=== PATIENT | female | born 1990 | race African-American/Black ===

== ENCOUNTER 2022-05-05 10:55 | Emergency (ER) | payer MEDICAID ==
[~2022-05-05] VITALS: Ht 165.1 cm; Wt 84.8 kg
[2022-05-05 10:55] VITALS: BP_SYST 122
[2022-05-05] MEDS ORDERED: NACL 0.9% 2,000 ML IV ONE (12:30)
[2022-05-05] MEDS ORDERED: INSULIN REGULAR, HUMAN 10 UNITS/0.1 ML, 3 ML VIAL IVP ONE (12:30)
[2022-05-05] MEDS ORDERED: INSULIN REGULAR, HUMAN 10 UNITS/0.1 ML, 3 ML VIAL ONE (14:57)
[2022-05-05 15:02] LABS: BASOPHILS # (AUTO) 0.1 K/uL (0.0-0.2); BASOPHILS % (AUTO) 0.5 % (0.0-2.0); EOSINOPHILS # (AUTO) 0.3 K/uL (0.0-0.4); HEMATOCRIT 40.5 % (36-48); HEMOGLOBIN 13.3 g/dL (12.0-16.0); LYMPHOCYTES # (AUTO) 2.7 K/uL (1.0-5.5); LYMPHOCYTES % (AUTO) 24.1 % (20.5-51.5); MEAN CORPUSCULAR HEMOGLOBIN 27 pg (27-31); MEAN CORPUSCULAR HGB CONC 33 % (32-36); MEAN CORPUSCULAR VOLUME 81 fL (79.0-98.0); MONOCYTES # (AUTO) 0.7 K/uL (0.0-1.0); MONOCYTES % (AUTO) 5.9 % (1.7-9.3); NEUTROPHILS # (AUTO) 7.4 K/uL (1.8-7.7); NEUTROPHILS % (AUTO) 66.5 % (40.0-70.0); PLATELET COUNT (AUTO) 193 K/uL (130-430); RED BLOOD CELL COUNT(AUTO) 4.97 MIL/uL (4.2-6.2); RED CELL DISTRIBUTION WIDTH 17.8 % (9.0-15.0); WHITE BLOOD COUNT (AUTO) 11.2 K/uL (4.8-10.8)
[2022-05-05 15:28] LABS: ANION GAP 8 (5-15); CHLORIDE 95 mmol/L (98-107); CREATININE 1.04 mg/dL (0.55-1.30); UREA NITROGEN, BLOOD 18 mg/dL (8-21)
[2022-05-05 15:37] LABS: ALANINE AMINOTRANSFERASE 20 U/L (12-78); ALBUMIN 3.5 g/dL (3.4-4.8); ASPARTATE AMINOTRANSFERASE 14 U/L (10-37); TOTAL BILIRUBIN 0.2 mg/dL (0.0-1.0)
[2022-05-05 15:51] LABS: GFR AFRICAN AMERICAN 78 mL/min (>90)
[2022-05-05 15:52] LABS: GLUCOSE 457 mg/dL (70-99)
[2022-05-05] MEDS ORDERED: DIPHENHYDRAMINE INJ 50 MG/ML VIAL IVP ONE (17:45)
[2022-05-05] MEDS ORDERED: metFORMIN HCL 500 MG TABLET PO SCH (18:00)
[2022-05-05] MEDS ORDERED: INSU10VI2 SQ (18:33)
[2022-05-05 18:39] VITALS: BP_SYST 125
== END 2022-05-05 18:39 | disposition home or self-care (01) ==
LOC: SED 10:55
DX: E11.65 Type 2 diabetes mellitus with hyperglycemia (principal); R42 Dizziness and giddiness; F17.210 Nicotine dependence, cigarettes, uncomplicated; F15.10 Other stimulant abuse, uncomplicated; Z88.6 Allergy status to analgesic agent; Z79.899 Other long term (current) drug therapy
CPT/HCPCS: 99284; 96374; 96361; 96375; 80053; 85025; 84484; 36415; 81025; 83605; J1200; J7030; J1815